=== PATIENT | female | born 2000 | race Caucasian/White ===

== ENCOUNTER 2024-04-08 17:49 | Emergency (ER) | payer BC ==
[2024-04-08 18:50] LABS: BASOPHILS ABSOLUTE AUTO 0.1 K/mm3 (0.0-0.2); EOSINOPHILS ABSOLUTE AUTO 0.1 K/mm3 (0.0-0.4); EOSINOPHILS PERCENT AUTO 0.6 % (0.0-6.0); HEMATOCRIT 47.7 % (37.0-47.0); HEMOGLOBIN 16.5 gm/dl (12.0-16.0); IMMATURE GRAN ABSOLUTE AUTO 0.03 K/mm3 (0.00-0.05); IMMATURE GRAN PERCENT AUTO 0.3 % (0.0-0.4); LYMPHOCYTES ABSOLUTE AUTO 1.4 K/mm3 (1.0-4.8); LYMPHOCYTES PERCENT AUTO 14.5 % (24.0-44.0); MEAN CORPUSCULAR HEMOGLOBIN 29.4 pg (28.0-32.0); MEAN CORPUSCULAR HGB CONC 34.6 g/dl (32.0-36.0); MONOCYTES ABSOLUTE AUTO 0.4 K/mm3 (0.0-0.8); MONOCYTES PERCENT AUTO 4.2 % (0.0-8.0); NEUTROPHILS ABSOLUTE AUTO 7.6 K/mm3 (1.8-7.7); NEUTROPHILS PERCENT AUTO 79.4 % (41.0-71.0); PLATELET COUNT,PLT 445 K/mm3 (150-400); RED BLOOD CELL COUNT 5.61 M/mm3 (4.10-5.30); WHITE BLOOD CELL COUNT,WBC 9.53 K/mm3 (3.9-11.3)
[2024-04-08] MEDS: Ketorolac 30 MG/ML SDV IVPUSH ONE (18:55)
[2024-04-08] MEDS: Sodium Chloride 0.9% 1,000 ML IV STA (18:55)
[2024-04-08] MEDS: Ondansetron 4 MG/2 ML SDV IVPUSH ONE (18:55)
[2024-04-08] MEDS: Sodium Chloride 0.9% 10 ML Syringe FLUSH PRN (18:57)
[2024-04-08 19:20] LABS: A/G RATIO 1.2 (1-2); ALBUMIN 4.7 g/dl (3.4-5.0); ANION GAP 16.6 (5-15); BILIRUBIN TOTAL 0.5 mg/dL (0.2-1.0); BUN/CREATININE RATIO 6.7 (14-18); CALCIUM 9.7 mg/dL (8.5-10.1); CREATININE 0.9 mg/dL (0.55-1.02); EST CRCL DRUG DOSING (CG) 103.33 mL/min; ETHANOL BLOOD MEDICAL 0.01 gm% (0.00); MAGNESIUM 1.7 mg/dL (1.8-2.4); POTASSIUM,K 3.6 mEq/L (3.5-5.1); PROTEIN TOTAL,TP 8.6 g/dl (6.4-8.2); TSH 1.404 uIU/mL (0.358-3.74)
[2024-04-08 20:09] LABS: APPEARANCE,URINE CLOUDY (Clear); BILIRUBIN,URINE 1+ (Negative); COLOR,URINE ORANGE (Yellow); GLUCOSE,URINE TRACE (Negative); KETONES,URINE 4+ (Negative); LEUKOCYTE ESTERASE,URINE 3+ (Negative); NITRITE,URINE POSITIVE (Negative); OCCULT BLOOD,URINE NEGATIVE (Negative); PH,URINE 6.5 (5.0-8.0); PROTEIN,URINE 2+ (Negative)
[2024-04-08 20:24] LABS: BARBITURATE SCREEN,URINE NEGATIVE (CUTOFF=200); BENZODIAZEPINES SCREEN,URINE NEGATIVE (CUTOFF=150); BUPRENORPHINE SCREEN,URINE NEGATIVE (CUTOFF=10); METHADONE SCREEN, URINE NEGATIVE (CUTOFF=200); METHAMPHETAMINES SCREEN, URINE NEGATIVE (CUTOFF=500); OXYCODONE SCREEN,URINE NEGATIVE (CUT0FF=100); THC SCREEN,URINE 20 NG/ML PRESUMPTIVE POSITIVE (CUTOFF=50)
[2024-04-08 20:27] LABS: BACTERIA,URINE MANY /hpf (FEW); MUCUS,URINE MANY /hpf (FEW); SQUAMOUS EPITHELIAL CELLS,UR 20-30 /hpf (0-5); WBC,URINE 20-30 /hpf (0-5)
[2024-04-08 20:28] LABS: AMPHETAMINES SCREEN, URINE PRESUMPTIVE POSITIVE (CUTOFF=500)
[2024-04-08] MEDS: cefTRIAXone 2 GM in Sodium Chloride 0.9% 100 ML IV ONE (20:49)
== END 2024-04-08 22:10 | disposition home or self-care (01) ==
LOC: JD.ED 17:49
DX: N39.0 Urinary tract infection, site not specified (principal); F10.90 Alcohol use, unspecified, uncomplicated; F17.200 Nicotine dependence, unspecified, uncomplicated; Y90.0 Blood alcohol level of less than 20 mg/100 ml; Z63.0 Problems in relationship with spouse or partner; Z79.899 Other long term (current) drug therapy
CPT/HCPCS: 36415; 80053; 80143; 80179; 80306; 80307; 81001; 83690; 83735; 84443; 84703; 85025; 87086; 96361; 96365; 96375; 99284-25; J0696; J1885; J2405; J3490; J7030

== ENCOUNTER 2024-04-10 10:10 | Emergency (ER) | payer BC ==
[2024-04-10 11:09] LABS: APPEARANCE,URINE CLEAR (Clear); BILIRUBIN,URINE NEGATIVE (Negative); COLOR,URINE YELLOW (Yellow); GLUCOSE,URINE NEGATIVE (Negative); KETONES,URINE NEGATIVE (Negative); LEUKOCYTE ESTERASE,URINE NEGATIVE (Negative); NITRITE,URINE NEGATIVE (Negative); OCCULT BLOOD,URINE NEGATIVE (Negative); PH,URINE 5.5 (5.0-8.0); PROTEIN,URINE NEGATIVE (Negative); UROBILINOGEN,URINE 0.2 (0.2-1.0)
[2024-04-10 13:12] LABS: BACTERIA,URINE FEW /hpf (FEW); MUCUS,URINE FEW /hpf (FEW); RBC,URINE 0-5 /hpf (0-5); WBC,URINE 0-5 /hpf (0-5)
[2024-04-10] MEDS: Nitrofurantoin Monohydrate/Macrocrystalline 100 MG Cap PO ONE (19:51)
[2024-04-10] MEDS: Phenazopyridine 95 MG Tab PO ONE (19:51)
[2024-04-10] MEDS: Ondansetron 4 MG Tab.DIS PO ONE (19:52)
== END 2024-04-10 12:11 | disposition home or self-care (01) ==
LOC: JD.ED 10:10
DX: N30.01 Acute cystitis with hematuria (principal); Z79.899 Other long term (current) drug therapy
CPT/HCPCS: 81001; 99284; C1758